=== PATIENT | female | born 1985 | race Caucasian/White ===

== ENCOUNTER 2017-06-21 12:50 | Emergency (ER) | payer OTHER ==
[~2017-06-21] VITALS: Ht 152.4 cm; Wt 54.0 kg
[~2017-06-21 12:50] MED LIST: CITA20TA9 PO
[2017-06-21 13:07] VITALS: TEMP 37; Ht 152.4 cm; Wt 54.0 kg
[2017-06-21] MEDS ORDERED: MILK AND MOLASSES ENEMA PR STA (13:23)
--- NOTE | 2017-06-21 13:28 | EMERGENCY ROOM VISIT NOTE ---
History First contact with patient: 13:03 Chief Complaint: CONSTIPATION Stated Complaint: CONSTIPATED Nursing Triage Summary: Pt. has been constipated for 3 days. She did an enema at home, and then called EMS. History of Present Illness The patient is a 31 year old female who presents to the Emergency Room via EMS with complaints of constipation. The patient reports that she has been constipated for the past 2 days. She has not had a bowel movement in that time. She states that this morning, she took fiber, a laxative pill and tried an enema without relief. She has not tried anything prior to this. She does report a history of constipation but does not use any medications daily for this. She reports rectal pain when she is trying to have a bowel movement. She has developed some lower abdominal discomfort when trying to go to the bathroom. She denies any urinary symptoms, nausea/vomiting or fevers. She denies taking any narcotic pain medication or any recent dietary changes. Review of Systems A complete 10 point review of systems was reviewed with the patient with pertinent positives and negatives as per history of present illness. All else were negative. Past Medical/Surgical History Medical Problems: (1) No significant past medical history Surgical Problems: (1) No significant past surgical history Social History Smoking Status: Unknown if Ever Smoked Housing Status: lives with family Current/Historical Medications Scheduled Fluoxetine (Prozac), 20 MG PO DAILY Naltrexone HCl (Naltrexone HCl), Unknown Dose PO BID Physical Exam Vital Signs Date Time Temp Pulse Resp B/P (MAP) Pulse Ox O2 Delivery O2 Flow Rate FiO2 06/21/17 15:19 72 20 110/72 99 06/21/17 13:07 37.0 85 16 126/88 Room Air Physical Exam VITALS: Vitals are noted on the nurse's note and reviewed by myself. Vital signs stable. GENERAL: This is a 31-year-old female, in no acute distress, uncomfortable appearing, well-developed well-nourished. HEART: Regular rate and rhythm without murmurs gallops or rubs. LUNGS: Clear to auscultation bilaterally without wheezes, rales or rhonchi. ABDOMEN: Positive bowel sounds x 4. Soft, nondistended and nontender to palpation. NEURO: Patient was alert and oriented to person place and time. Medical Decision & Procedures ER Provider Diagnostic Interpretation: KUB CLINICAL HISTORY: constipation pain COMPARISON STUDY: No previous studies for comparison. FINDINGS: Mild increase in fecal load within the sigmoid and ascending colon. No evidence for bowel obstruction. Intrauterine device is present. No secondary signs of free air. IMPRESSION: Mild increase in fecal load sigmoid and descending colon. No evidence for obstruction. Medications Administered Medications (Trade) Dose Ordered Sig/Patrice Route Start Time Stop Time Status Last Admin Dose Admin Miscellaneous Medication (Milk And Molasses Enema) 1 ea NOW STAT AK 06/21/17 13:23 06/21/17 13:24 DC 06/21/17 13:23 1 EA Medical Decision Differential diagnosis includes constipation, bowel obstruction, among others. The patient was evaluated as above. KUB was performed and reviewed by radiology and showed mild increase in fecal load. Patient was given a successful milk and molasses enema. She was instructed to use stool softeners and laxatives as needed at home. She verbalized understanding of my assessment and treatment plan and was discharged home in good condition. Medication Reconcilliation Current Medication List: was personally reviewed by me Blood Pressure Screening Patient's blood pressure: Normal blood pressure Impression Primary Impression: Constipation Departure Information Dispostion Home / Self-Care Condition GOOD Referrals [facility] (PCP) Patient Instructions My [facility] Additional Instructions You have been treated in the Emergency Department today for Constipation. Laboratory results and imaging studies do not indicate any emergent issues warranting surgery or admission. You should drink plenty of fluids and stay well hydrated as this can help soften your stool. Increasing your fiber intake can help with frequency and consistency of your stools. Fruits, vegetables, and whole grains are all good sources of dietary fibers. In addition, you might consider adding supplemental fiber to your diet as well (i.e. Benefiber, Fiber Choice, Metamucil). You should schedule an appointment with your Primary Care Provider to discuss the possibility of adding a stool softener or laxative to your medications. Stool Softeners and Laxatives should only be taken after consultation with your PCP as they have the potential to cause electrolyte abnormalities and worsening symptoms. Return to the Emergency Department if your current symptoms worsen despite treatment course outlined above, or if you develop any of the following symptoms : worsening abdominal pain, large amount of blood in the stool, black or tarry stools, fevers, chills, or uncontrollable vomiting.
[2017-06-21] MEDS ORDERED: FLUO20CA35 PO (13:36)
[2017-06-21] MEDS ORDERED: NALT50TA16 PO (13:36)
--- NOTE | 2017-06-21 13:59 | DIAGNOSTIC IMAGING REPORT ---
KUB CLINICAL HISTORY: constipation pain COMPARISON STUDY: No previous studies for comparison. FINDINGS: Mild increase in fecal load within the sigmoid and ascending colon. No evidence for bowel obstruction. Intrauterine device is present. No secondary signs of free air. IMPRESSION: Mild increase in fecal load sigmoid and descending colon. No evidence for obstruction. The above report was generated using voice recognition software. It may contain grammatical, syntax or spelling errors. Electronically signed by: Barrie Olsen M.D. 06/21/2017 1:58 PM Dictated Date/Time: 06/21/2017 1:57 PM
[2017-06-21 15:19] VITALS: BP 110/72; PULSE 72; O2SAT 99
== END 2017-06-21 15:21 | disposition home or self-care (01) ==
LOC: EDBD 12:50 → C.EDB 12:51
DX: K62.89 Other specified diseases of anus and rectum (principal)